=== PATIENT | female | born 1970 | race Caucasian/White ===

== ENCOUNTER 2017-12-08 12:25 | Emergency (ER) | payer MEDICAID ==
[~2017-12-08] VITALS: Ht 162.6 cm; Wt 64.0 kg
[2017-12-08 12:59] VITALS: BP 111/79
== END 2017-12-08 13:30 | disposition home or self-care (01) ==
LOC: ER 12:25
DX: H66.91 Otitis media, unspecified, right ear (principal); F17.210 Nicotine dependence, cigarettes, uncomplicated; Z88.0 Allergy status to penicillin

== ENCOUNTER 2019-09-13 19:56 | Emergency (ER) | payer MEDICAID, OTHER ==
[~2019-09-13] VITALS: Ht 162.6 cm; Wt 59.0 kg
[2019-09-13 22:32] VITALS: BP 128/71
== END 2019-09-13 22:52 | disposition home or self-care (01) ==
LOC: ER 19:56
DX: J06.9 Acute upper respiratory infection, unspecified (principal); F17.210 Nicotine dependence, cigarettes, uncomplicated; Z88.0 Allergy status to penicillin

== ENCOUNTER 2022-02-01 11:35 | Emergency (ER) | payer OTHER ==
[~2022-02-01] VITALS: Ht 162.6 cm; Wt 72.6 kg
[2022-02-01 12:47] VITALS: BP 130/85
[2022-02-01] MEDS ORDERED: DOXY-286 PO (15:33)
[2022-02-01] MEDS ORDERED: BENZ100C19 PO (15:33)
== END 2022-02-01 15:45 | disposition home or self-care (01) ==
LOC: ER 11:35
DX: J06.9 Acute upper respiratory infection, unspecified (principal); F17.210 Nicotine dependence, cigarettes, uncomplicated; J45.909 Unspecified asthma, uncomplicated; Z20.822 Contact with and (suspected) exposure to COVID-19
CPT/HCPCS: 36415; 71045

== ENCOUNTER 2025-09-08 08:24 | Outpatient (CLI) | payer OTHER ==
[~2025-09-08] VITALS: Ht 162.6 cm; Wt 62.1 kg
[~2025-09-08 08:24] MED LIST: BENZ100C19 PO
--- NOTE | 2025-09-08 10:41 | DVHCARD ---
Cardiology Stress Test [place] Treadmill Stress Test [place] Referring MD: MD Elizabeth Protocol: Butch (with cardiolite) Reason for referral: Chest Pain Target heart Rate:@85%: 141 Percent MPHR: 166 METS: 10.10 Resting Heart rate: 63 Resting Blood Pressure: 107/75 Exercise Heart Rate: 160 Exercise Blood Pressure: 124/72 Reason for Termination of Test: Completion of Protocol Baseline EKG: NSR Stress EKG: Sinus tachycardia w/o evidence of ST-T wave segment changes, +artifact Functional Capacity: Good Normal Heart Rate Response: Adequate Blood Pressure Response: Hypertensive Clinical response: Non-ischemic Arrhythmia?: No Cardiolite Injected?: Yes ST-T Changes: Non/Minimal Probability of Inducible Ische: Perfusion result pending Comments: Uneventful Butch protocol Date of Service: Sep 08, 2025 Billing Provider: LEONID DAY Cardiology Common Codes: PROCEDURE ONLY Treadmill W/Cardiolite Nuclear: [id number], INTERP, RPT LEONID DAY Sep 08, 2025 10:41
--- NOTE | 2025-09-09 12:17 | DVHSR ---
APPROVED REPORT Exam: Nuclear Stress Test Indication: Chest pain BMI: 0 Stress Test Details Stress Test: Exercise stress testing was performed using a Butch protocol. HR Resting HR: 63 bpm Max Heart Rate (APMHR): 166.620506 bpm Max HR Achieved: 160 bpm Target HR (85% APMHR): 141.117432 bpm % of APMHR: 96.39 Recovery HR: 100 bpm BP Resting BP: 107/75 mmHg Recovery BP: 124/72 mmHg ECG Resting ECG: Sinus Rhythm Clinical Reason for Termination: Completed protocol Exercise duration: 9 min sec Nurse Comments Recieved ambulatory, A/Ox4 on RA, connected to monitoring analyst, VS stable. PIV S/L flushes well, reviewed POC, pt verbalized understanding. Luca CORRECTION OFFICER here to monitor exam. Treadmill test performed per protocol. Pt stable, tolerated well, VS returned to baseline. Pt to follow up with fabric worker leader for results. Stress ECG Conclusion lvef 60% normal perfusion scan NM EXAM: Myocardial Perfusion REST/STRESS Imaging Protocol: Rest Tc-99m/Stress Tc-99m 1 day Resting Data Rest SPECT myocardial perfusion imaging was performed in supine position 45 minutes following the intravenous injection of 10.1 mCi of Tc-99m Sestamibi. Time of rest injection: 08:55 Date: 09/08/2025 Time of rest imagin:40 Date: 09/08/2025 Administration Route: IV Administration Site: Right Arm Exercise Stress At peak stress, the patient was injected intravenously with 31.2mCi of Tc-99m Sestamibi. Time of stress injection: 10:00 Date: 09/08/2025 Time of stress imagin:45 Date: 09/08/2025 Administration Route: IV Administration Site: Right Arm Gated Stress SPECT was performed 45 minutes after stress injection. The images were gated to evaluate regional wall motion and calculate left ventricular ejection fraction. Stress only was performed in the Supine position. Nuclear Conclusion Nuclear Findings: negative for ischemia lvef 60% normal perfusion scan
== END 2025-09-08 17:00 | disposition home or self-care (01) ==
LOC: XYW 08:24
PROVIDERS: ATTEND Internal Medicine
DX: R07.9 Chest pain, unspecified (principal)
CPT/HCPCS: 78452; 93017; A9500